=== PATIENT | male | born 1995 ===

== ENCOUNTER 2017-11-10 17:41 | Emergency (ER) | payer BC ==
[2017-11-10 18:25] VITALS: BP 103/64
--- NOTE | 2017-11-10 19:18 | UC ---
Jennifer Garcia Tenzin, scribed for Ashley Hines MD on 11/10/17 at 1909 . General HPI - HPI Summary HPI Summary: Pt is a 22 years old male presenting to the complaining of stomachache and feeling intermittent waves of anxiety and depression. He notes that he had stomach problem for the past two weeks. The pain is waxing and waning and at worst rated at 7/10 and at baseline 1/10 in severity. He also complaints of subjective fever, chills and having flashes of feeling disorientation with no memory intermittently. He denies SOB, dysuria, vision changes and penile pain. No aggravating and alleviating factors were noted. He saw a therapist in the past for anxiety and depression and his last visit was last summer. He was on Prozac but currently not on it. He smokes in the past, a pack every two months. No SI. He smokes marijuana infrequently. Pt's medication reviewed this visit. - History of Current Complaint Chief Complaint: UCGeneralIllness Stated Complaint: ABDOMINAL PAIN,ANXIETY Time Seen by Provider: 11/10/17 18:47 Hx Obtained From: Patient Onset Severity: Mild Pain Intensity: 1 Associated Signs & Symptoms: Positive: Abdominal Pain, Other - postive: subjective fever, chills and stomache intermittently. Anxiety and depression intermittently.. Negative: Dysuria - Allergy/Home Medications Allergies/Adverse Reactions: Allergies Allergy/AdvReac Type Severity Reaction Status Date / Time No Known Allergies Allergy Unverified 11/10/17 18:25 Home Medications: Home Medications NK [No Home Medications Reported] 11/10/17 [History Confirmed 11/10/17] PMH/Surg Hx/FS Hx/Imm Hx - Additional Past Medical History Additional PMH: NEGATIVE: ND, CVA - Surgical History Surgical History: Yes Surgery Procedure, Year, and Place: TYMPANOSPLASTY X 3 - [place] - Family History Known Family History: Positive: Other Family History: Pt is adopted. Pt denies any relevant family history. - Social History Alcohol Use: None Substance Use Type: Marijuana Smoking Status (MU): Current Some Day Smoker Review of Systems Constitutional: Fever - intermittently., Chills - intermittently. Skin: Negative Eyes: Negative ENT: Negative Respiratory: Negative Cardiovascular: Negative Gastrointestinal: Other - stomach problem. Genitourinary: Negative Motor: Negative Neurovascular: Negative Musculoskeletal: Negative Neurological: Negative Psychological: Anxious, Depressed All Other Systems Reviewed And Are Negative: Yes Physical Exam Vital Signs: Initial Vital Signs Temp 98.6 F 11/10/17 18:20 Pulse 61 11/10/17 18:20 Resp 16 11/10/17 18:20 BP 103/64 11/10/17 18:20 Pulse Ox 100 11/10/17 18:20 Eye Exam: Normal ENT Exam: Normal Dental Exam: Normal Neck exam: Normal Neck: Positive: 1 Respiratory Exam: Normal Cardiovascular Exam: Normal Abdominal Exam: Normal Musculoskeletal Exam: Normal Neurological Exam: Normal Psychological Exam: Normal Skin Exam: Normal Discharge - Discharge Plan Forms: *Work Release Referrals: No Primary Care Phys,NOPCP [Primary Care Provider] - The documentation as recorded by the Jennifer sheets Tenzin accurately reflects the service I personally performed and the decisions made by Donny camara Laura, MD.
[2017-11-11 10:45] LABS: Hematocrit 44 % (42-52); Hemoglobin 14.2 g/dl (14.0-18.0); Mean Corpuscular HGB Conc 32 g/dl (31-36); Mean Corpuscular Hemoglobin 23 pg (27-31); Mean Corpuscular Volume 73 fL (80-94); Mean Platelet Volume 7.8 um3 (7.4-10.4); Platelet Count 251 10^3/ul (150-450); Red Blood Count 6.13 10^6/ul (4.00-5.40); Red Cell Distribution Width 14 % (10.5-15); White Blood Count 6.7 10^3/ul (3.5-10.8)
[2017-11-11 11:06] LABS: ABS Basophils 0.1 10^3/ul (0-0.2); ABS Eosinophils 0.1 10^3/ul (0-0.6); ABS Lymphocytes 3.1 10^3/ul (1.0-4.8); ABS Monocytes 0.4 10^3/ul (0-0.8); ABS Nucleated RBC 0 10^3/ul; Eosinophil % 1.2 % (0-6); Lymphocyte % 46.4 % (25-47); Nucleated Red Blood Cells % 0.1
[2017-11-11 11:25] LABS: EGFR Non-African American 95.3 (>60)
--- NOTE | 2017-11-11 16:13 | UC ---
- Progress Note Progress Note: CBC and CMP results back. RBC mildly elevated MCV and MCH mildly low --Warrants workup for further blood disorders including, but not limited to; iron def anemia, thalassemia, or other vitamin/iron disorders. -Needs f/u with PCP within 4-6weeks Discharge - Sign-Out/Discharge Documenting (check all that apply): Post-Discharge Follow Up - Discharge Plan Condition: Stable Disposition: HOME Prescriptions: Famotidine TAB* [Pepcid 20 MG TAB*] 20 mg PO DAILY #30 tab Patient Education Materials: Abdominal Pain (ED), Anxiety (ED) Forms: *Work Release Referrals: [facility] [Outside] No Primary Care Phys,NOPCP [Primary Care Provider] - Additional Instructions: You have blood work drawn today - these results will come back in 1-2 days. If there is any concerning finding a member from our care team will contact you It is recommended you avoid spicy foods, acidic foods, tomato based foods. Eat small, frequent meals throughout the day Okay to take Pepcid 2 times a day as prescribed for pain You should NOT drive, operate machinery, climb heights, swim until you are seen in follow-up If you experience any additional episodes of disorientation- it is recommended you call 911 or go directly to an emergency department for further evaluation It is recommended you seek treatment for your anxiety. You have been given the contact information for [facility]. You may go there or seek care in [place] where you live. If you have any thoughts of injuring yourself or anyone else it is recommended you call 911 or go immediately to the emergency department Arrange a follow-up appointment with your newly establish primary care provider in [place]. - Billing Disposition and Condition Condition: STABLE Disposition: Home
== END 2017-11-10 19:40 | disposition home or self-care (01) ==
LOC: UCEAST 17:41
DX: R10.84 Generalized abdominal pain (principal); F41.9 Anxiety disorder, unspecified; F32.9 Major depressive disorder, single episode, unspecified; R50.9 Fever, unspecified; R71.8 Other abnormality of red blood cells; Z72.0 Tobacco use
CPT/HCPCS: 36415; 80053; 81003; 83690; 84443; 85025; 99202; G0463